=== PATIENT | male | born 2000 | race Hispanic/Latino ===

== ENCOUNTER 2020-02-11 13:46 | Outpatient (CLI) | payer OTHER ==
--- NOTE | 2020-02-14 09:52 | EEG ---
DATE OF SERVICE: DESCRIPTION OF THE RECORD: Waking background is 9-10 hertz, medium amplitude alpha frequency. The patient remained awake throughout the study. Hyperventilation and photic stimulation were unremarkable. The patient had noted tic-like movements during this study, but these were not seen in association with any epileptiform features. IMPRESSION: This is a normal awake EEG without evidence of epileptiform features associated with his tic-like movements. Job ID: [id number]
== END 2020-02-11 13:47 | disposition home or self-care (01) ==
LOC: EEG 13:46
PROVIDERS: ATTEND Psychiatry & Neurology Neurology
DX: F95.9 Tic disorder, unspecified (principal)
CPT/HCPCS: 95816